=== PATIENT | female | born 1990 | race Hispanic/Latino ===

== ENCOUNTER 2017-03-30 19:35 | Emergency (ER) | payer MEDICAID ==
[2017-03-30 19:35] VITALS: BMI 43.4
--- NOTE | 2017-03-30 20:22 | ED PDOC ---
- Laboratory Results Result Diagrams: 03/30/17 20:55 03/30/17 20:55 - ECG O2 Sat by Pulse Oximetry: 98 Disposition - Clinical Impression Clinical Impression: Tonsillitis, Sinusitis - POA Present On Arrival: None - Disposition Referrals: [facility] [Outside] Disposition: Routine/Home Disposition Time: 01:00 Condition: IMPROVED Prescriptions: Amoxicillin/Clavulanate [Augmentin 875 MG-125 MG] 1 tab PO BID #14 tab Methylprednisolone [Medrol Dosepak] 4 mg PO ASDIR #1 pkg Instructions: Sinusitis (ED), Tonsillitis (ED)
[2017-03-30] MEDS ORDERED: Sodium Chloride 0.9% 1,000 ML IV STA (20:27)
[2017-03-30] MEDS ORDERED: Dexamethasone 10 MG in Sodium Chloride 0.9% 50 ML IV STA (20:38)
[2017-03-30 21:30] LABS: BASO # 0.1 K/uL (0.0-0.2); BASO % 0.3 % (0.0-2.0); EOS % 0.1 % (0.0-4.0); HEMATOCRIT 35.9 % (34.0-47.0); LYMPH # 2.1 K/uL (1.0-4.3); LYMPH % 11.3 % (20.0-40.0); MEAN CORPUSCULAR HEMOGLOBIN 28.5 pg (27.0-31.0); MEAN CORPUSCULAR HGB CONC 33.2 g/dL (33.0-37.0); MEAN PLATELET VOLUME 9.2 fl (7.2-11.7); MONO # 0.9 K/uL (0.0-0.8); MONO % 5.1 % (0.0-10.0); NEUT # 15.3 K/uL (1.8-7.0); NEUT % 83.2 % (50.0-75.0); RED CELL DISTRIBUTION WIDTH 13.7 % (11.5-14.5); WHITE BLOOD COUNT 18.4 K/uL (4.8-10.8)
[2017-03-30 21:52] LABS: ALB/GLOB RATIO 1.1 (1.0-2.1); ALKALINE PHOSPHATASE 105 U/L (38-126); ALT/SGPT 27 U/L (9-52); AST/SGOT 36 U/L (14-36); BILIRUBIN,TOTAL 0.7 mg/dl (0.2-1.3); BLOOD UREA NITROGEN 10 mg/dl (7-17); CARBON DIOXIDE 21 mmol/L (22-30); CHLORIDE 103 mmol/L (98-107); GFR AFRICAN-AMERICAN > 60; GLUCOSE,RANDOM 97 mg/dL (65-105); POTASSIUM 3.4 MMOL/L (3.6-5.0); SODIUM 136 mmol/l (132-148); TOTAL PROTEIN 8.1 G/DL (6.3-8.2)
--- NOTE | 2017-03-30 21:58 | ED PDOC ---
HPI: Fever Fever Onset Was: 03/29/17 Past Medical History Vital Signs: Last Vital Signs Temp 102.0 F H 03/30/17 21:38 Pulse 134 H 03/30/17 19:40 Resp 16 03/30/17 19:40 BP 134/73 03/30/17 19:40 Pulse Ox 98 03/30/17 20:43 - Medical History PMH: Depression, Gall Bladder Disease (Gall stones) - Family History Family History: States: Diabetes, Hypertension - Home Medications Home Medications: Ambulatory Orders Medication Instructions Recorded Nitrofurantoin Macrocrystals 100 mg PO BID #14 cap 06/14/16 [Macrobid] Cyclobenzaprine [Cyclobenzaprine 10 mg PO Q8 #15 tab 07/23/16 HCl] Naproxen [Naprosyn] 500 mg PO BID #20 tablet 07/23/16 Naproxen [Naprosyn] 500 mg PO Q12 PRN #20 tablet 08/18/16 Cephalexin [cephalexin] 500 mg PO TID #21 cap 01/04/17 Ibuprofen [Motrin] 600 mg PO TID PRN #30 tab 01/04/17 - Allergies Allergies/Adverse Reactions: Allergies Allergy/AdvReac Type Severity Reaction Status Date / Time No Known Allergies Allergy Verified 03/30/17 19:40 - ECG O2 Sat by Pulse Oximetry: 98
--- NOTE | 2017-03-30 22:04 | ED PDOC ---
HPI: General Adult Time Seen by Provider: 03/30/17 20:17 Chief Complaint (Nursing): Fever Chief Complaint (Provider): Sore Throat History Per: Patient History/Exam Limitations: no limitations Onset/Duration Of Symptoms: Days (1x) Current Symptoms Are (Timing): Still Present Severity: Moderate Additional Complaint(s): 26 year old female with no pertinent medical history presents to the ED with complaints of a sore throat, accompanied by general weakness, and a fever that started 1x day ago. She reports that she can not swallow solid food because of the intense pain. She also reports having 1x episode of non bloody non bilious vomiting. She denies having any other medical complaints. PMD: patient does not recall. Past Medical History Reviewed: Historical Data, Nursing Documentation, Vital Signs Vital Signs: Last Vital Signs Temp 98.2 F 03/31/17 01:49 Pulse 86 03/31/17 01:49 Resp 16 03/31/17 01:49 BP 136/81 03/31/17 01:49 Pulse Ox 98 03/31/17 21:52 - Medical History PMH: Depression, Gall Bladder Disease (Gall stones) - Surgical History Surgical History: No Surg Hx - Family History Family History: States: Diabetes, Hypertension - Social History Current smoker - smoking cessation education provided: No Alcohol: None Drugs: Denies - Home Medications Home Medications: Ambulatory Orders Medication Instructions Recorded Nitrofurantoin Macrocrystals 100 mg PO BID #14 cap 06/14/16 [Macrobid] Cyclobenzaprine [Cyclobenzaprine 10 mg PO Q8 #15 tab 07/23/16 HCl] Naproxen [Naprosyn] 500 mg PO BID #20 tablet 07/23/16 Naproxen [Naprosyn] 500 mg PO Q12 PRN #20 tablet 08/18/16 Cephalexin [cephalexin] 500 mg PO TID #21 cap 01/04/17 Ibuprofen [Motrin] 600 mg PO TID PRN #30 tab 01/04/17 Amoxicillin/Clavulanate [Augmentin 1 tab PO BID #14 tab 03/31/17 875 MG-125 MG] Methylprednisolone [Medrol Dosepak] 4 mg PO ASDIR #1 pkg 03/31/17 - Allergies Allergies/Adverse Reactions: Allergies Allergy/AdvReac Type Severity Reaction Status Date / Time No Known Allergies Allergy Verified 03/30/17 19:40 Review of Systems ROS Statement: Except As Marked, All Systems Reviewed And Found Negative Constitutional: Positive for: Fever, Weakness ENT: Positive for: Throat Pain Gastrointestinal: Positive for: Vomiting (1x episode) Physical Exam - Reviewed Nursing Documentation Reviewed: Yes Vital Signs Reviewed: Yes - Physical Exam Appears: Positive for: Non-toxic, Uncomfortable Head Exam: Positive for: ATRAUMATIC, NORMOCEPHALIC Skin: Positive for: Normal Color, Warm, Dry ENT: Positive for: Tonsillar Exudate (bilateral enlarged tonsils with exudate), Other (trismus. Mucous membranes are tacky) Neck: Positive for: Normal Cardiovascular/Chest: Positive for: Regular Rate, Rhythm Respiratory: Positive for: Normal Breath Sounds. Negative for: Respiratory Distress Lymphatic: Positive for: Adenopathy (bilateral cervical adenopathy, worse on the left side. left side is tender) Neurologic/Psych: Positive for: Alert, Oriented (3x) - Laboratory Results Result Diagrams: 03/30/17 20:55 03/30/17 20:55 - ECG O2 Sat by Pulse Oximetry: 98 (RA) Pulse Ox Interpretation: Normal Medical Decision Making Medical Decision Makin:17 Initial impression: 26 year old female patient with a fever, sore throat, and trismus with exudated tonsillitis. Initial plan: * CT neck soft tissue with contrast * CMP * lactic acid, plasma * urine * CBC * Decadron Inj 10mg Sodium Chloride .9% 50l IV * IV NS 1,000ml IV 1,000mls/hr * toradol 10mg IV * tylenol 975 m PO * clood culture * throat culture * mono * influenza AB * rapid strep * urinalysis * reevaluation Labs reviewed sig for leukocytosis and Strep Ag is positive; CT Neck ordered to further exclude peritonsillar abscess CT Neck reviewed demonstrates sinusitis and tonsillitis w/o evidence of abscess. Patient reports marked improvement in symptoms and is stable for dc home DX Acute Tonsillitis, Sinusitis RX Medrol, Augmentin, FU [facility] 2-3 days, Push Fluids Scribe Attestation: Documented by Hyacinth Mata, acting as a scribe for Jaime Ceballos MD. Provider Scribe Attestation: All medical record entries made by the Scribe were at my direction and personally dictated by me. I have reviewed the chart and agree that the record accurately reflects my personal performance of the history, physical exam, medical decision making, and the department course for this patient. I have also personally directed, reviewed, and agree with the discharge instructions and disposition. Disposition - Clinical Impression Clinical Impression: Tonsillitis, Sinusitis - Disposition Referrals: [facility] [Outside] Disposition Time: 01:00 Condition: IMPROVED Prescriptions: Amoxicillin/Clavulanate [Augmentin 875 MG-125 MG] 1 tab PO BID #14 tab Methylprednisolone [Medrol Dosepak] 4 mg PO ASDIR #1 pkg Instructions: Sinusitis (ED), Tonsillitis (ED)
[2017-03-30 23:06] LABS: URINE BILIRUBIN NEGATIVE (NEGATIVE); URINE COLOR YELLOW (YELLOW); URINE GLUCOSE (UA) NEGATIVE (Normal); URINE KETONE NEGATIVE (NEGATIVE)
[2017-03-30 23:07] LABS: URINE BLOOD LARGE (NEGATIVE)
[2017-03-30 23:08] LABS: RBC URINE 9 /hpf (0-3); URINE BACTERIA OCC (<OCC); URINE LEUKOCYTE ESTERASE TRACE Leu/uL (Negative); URINE PROTEIN 100 mg/dL (NEGATIVE); WBC URINE 5 /hpf (0-5)
[2017-03-30] MEDS ORDERED: Sodium Chloride 0.9% 50 ML IV ONE (23:14)
[2017-03-30] MEDS ORDERED: Iohexol 300 100 ML IJ ONE (23:14)
[2017-03-30] MEDS ORDERED: cefTRIAXone (Rocephin) 1 gm Inj ONE (23:30)
[2017-03-31 01:50] VITALS: BP 136/81; PULSE 86; RESP 16; TEMP 98.2
--- NOTE | 2017-03-31 08:16 | CT ---
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 This CT exam was performed using one or more of the following dose reduction techniques: automated exposure control, adjustment of the mA and/or kV according to patient size, and/or use of iterative reconstruction technique. Coronal and sagittal reformatted images were created and reviewed. CONTRAST: 85 mL of administered intravenously. EXAM DATE/TIME: Exam ordered 03/30/2017 8:38 PM COMPARISON: No relevant prior studies available. FINDINGS: Artifacts: Please note evaluation of the mediastinum is very limited related to artifact. Nasopharynx: Moderate prominence of the adenoids. Oropharynx: Clarification has been provided that there is concern for peritonsillar abscess. There is bilateral prominence of the palatine tonsils. In addition, see for example series 2 image 34 and adjacent, there are multiple calcifications associated with the right palatine tonsil. calcification series 2 image 41 in the left palatine tonsil. No drainable collection is appreciated however. Hypopharynx: Unremarkable. Larynx: Unremarkable. Normal epiglottis. Trachea: Unremarkable. Retropharyngeal space: Unremarkable. Submandibular/parotid glands: Unremarkable. Glands are normal in size. Thyroid: The isthmus of the thyroid appears prominent, there are no focal thyroid lesions seen. Consider laboratory correlation with thyroid studies. Bones/joints: There is reversal of the normal cervical lordosis, this finding can sometimes be associated with muscle spasm. Clinical correlation. No acute fracture. Soft tissues: Unremarkable. Vasculature: The jugular veins bilaterally appear patent. Included portions of the carotid arteries appear patent noting some limitations in the thorax. Lymph nodes: There are pathologically enlarged nodes in the bilateral neck. For example, 14 mm short axis node, level III, series 2 image 39. Prominent left-sided level III and probable level I nodes series 2 image 42. Sinuses: There is a large mucus retention cyst or polyp in the right maxillary sinus, multiple small mucous retention cysts or polyps left maxillary sinus. There is moderate patchy mucoperiosteal disease of the ethmoids, left greater than right. Bubbly secretions in the right sphenoid sinus, this finding can sometimes be associated with more acute sinusitis. There is minimal inclusion of the frontal sinuses, with suggestion of some mucoperiosteal disease. Mastoid air cells: Mastoid air cells appear clear. Esophagus: Air in the esophagus suggesting reflux. Lung apices: Included portions of the lungs with mild mosaic attenuation, this finding might reflect air trapping. IMPRESSION: Marked bilateral enlargement of the palatine tonsils, with multiple calcifications as above. No apparent drainable collections at the present time. Bilateral adenopathy. Paranasal sinuses as above. Laboratory correlation for the thyroid suggested, noting prominence without focal lesion
[2017-03-31 21:52] VITALS: O2SAT 98
== END 2017-03-31 01:46 | disposition home or self-care (01) ==
LOC: H.ER 19:35
DX: J03.90 Acute tonsillitis, unspecified (principal); J32.9 Chronic sinusitis, unspecified; R11.10 Vomiting, unspecified

== ENCOUNTER 2018-06-04 07:14 | Emergency (ER) | payer MEDICAID ==
[2018-06-04 07:14] VITALS: BMI 43.4
[2018-06-04 07:19] VITALS: O2SAT 97
[2018-06-04] MEDS ORDERED: Sodium Chloride 0.9% 1,000 ML IV STA (07:57)
--- NOTE | 2018-06-04 07:58 | ED PDOC ---
HPI: Abdomen Time Seen by Provider: 06/04/18 07:23 Chief Complaint (Nursing): Abdominal Pain Chief Complaint (Provider): Abdominal Pain History Per: Patient History/Exam Limitations: no limitations Onset/Duration Of Symptoms: Persistent (x6 days) Current Symptoms Are (Timing): Still Present Location Of Pain/Discomfort: RUQ Associated Symptoms: Vomiting, Constipation Exacerbating Factors: Food Last Bowel Movement: Other (last week) Additional Complaint(s): 27 year old female with medical history of diabetes, presents to the emergency department with a complaint of right-sided abdominal pain associated with right leg numbness, constipation, bloating and 2 episodes of vomiting (last night) ongoing for 6 days. She denies any leg pain, fever, chills, nausea, diarrhea, back pain or urinary complaints. She reports pain is worse when eating/drinking and has been taking Tylenol PM for relief. Last bowel movement was 1 week ago. Of note, patient was treated for gallstones in ED on 08/17/16. PMD: none provided Past Medical History Reviewed: Historical Data, Nursing Documentation, Vital Signs Vital Signs: Last Vital Signs Temp 98.2 F 06/04/18 07:18 Pulse 62 06/04/18 07:18 Resp 18 06/04/18 07:18 BP 115/66 06/04/18 07:18 Pulse Ox 97 06/04/18 14:13 - Medical History PMH: Depression, Gall Bladder Disease (Gall stones) - Surgical History Surgical History: Denies: No Surg Hx Other surgeries: right ankle - Family History Family History: States: Diabetes, Hypertension - Social History Current smoker - smoking cessation education provided: Yes Alcohol: None Drugs: Denies - Immunization History Hx Tetanus Toxoid Vaccination: No Hx Influenza Vaccination: Yes Hx Pneumococcal Vaccination: No - Home Medications Home Medications: Ambulatory Orders Medication Instructions Recorded Nitrofurantoin Macrocrystals 100 mg PO BID #14 cap 06/14/16 [Macrobid] Cyclobenzaprine [Cyclobenzaprine 10 mg PO Q8 #15 tab 07/23/16 HCl] Naproxen [Naprosyn] 500 mg PO Q12 PRN #20 tablet 08/18/16 Cephalexin [cephalexin] 500 mg PO TID #21 cap 01/04/17 Ibuprofen [Motrin] 600 mg PO TID PRN #30 tab 02/22/17 Amoxicillin/Clavulanate [Augmentin 1 tab PO BID #14 tab 03/31/17 875 MG-125 MG] Methylprednisolone [Medrol Dosepak] 4 mg PO ASDIR #1 pkg 03/31/17 Naproxen [Naprosyn] 500 mg PO BID #20 tablet 06/04/18 - Allergies Allergies/Adverse Reactions: Allergies Allergy/AdvReac Type Severity Reaction Status Date / Time No Known Allergies Allergy Verified 03/30/17 19:40 Review of Systems ROS Statement: Except As Marked, All Systems Reviewed And Found Negative Constitutional: Negative for: Fever, Chills Gastrointestinal: Positive for: Vomiting (x2), Abdominal Pain (right-sided with bloating sensation), Constipation. Negative for: Nausea, Diarrhea Genitourinary Female: Negative for: Dysuria, Frequency, Incontinence, Hematuria Musculoskeletal: Negative for: Back Pain, Leg Pain (bilateral) Neurological: Positive for: Numbness (right leg) Physical Exam - Reviewed Nursing Documentation Reviewed: Yes Vital Signs Reviewed: Yes - Physical Exam Appears: Positive for: Non-toxic, No Acute Distress Head Exam: Positive for: ATRAUMATIC, NORMAL INSPECTION, NORMOCEPHALIC Skin: Positive for: Normal Color Eye Exam: Positive for: Normal appearance ENT: Positive for: Normal ENT Inspection Neck: Positive for: Normal Cardiovascular/Chest: Positive for: Regular Rate, Rhythm Respiratory: Positive for: Normal Breath Sounds. Negative for: Wheezing, Respiratory Distress Gastrointestinal/Abdominal: Positive for: Soft, Tenderness (significantly in RUQ ), Other (morbidly obese) Back: Positive for: Normal Inspection. Negative for: L CVA Tenderness, R CVA Tenderness Extremity: Positive for: Normal ROM (upper/lower). 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 Negative for: Motor/Sensory Deficits - Laboratory Results Result Diagrams: 06/04/18 08:10 06/04/18 08:10 - ECG O2 Sat by Pulse Oximetry: 97 (RA) Pulse Ox Interpretation: Normal - Progress Re-evaluation Time: 13:52 Condition: Re-examined, Improved Medical Decision Making Medical Decision Making: Initial Impression: Abdominal pain Differential Diagnosis: Acute cholecystitis; pancreatitis Initial Plan: * CMP * Lipase * Urine dipstick * CBC * Morphine 4mg IVP * NS 1,000ml IV per 1,000mls/hr * US ABD Time: 0847 --Labs: no significant abnormality. Time: 1128 --US ABD FINDINGS: LIVER: Measures 21.0 cm in length. Normal echogenicity of the liver parenchyma. No mass. No intrahepatic bile duct dilatation. Hepatomegaly suggested. GALLBLADDER: Extensive cholelithiasis identified within the gallbladder lumen. There is no sonographic Schwab sign however, pericholecystic fluid collection or gross mural thickening. Clinically correlate nevertheless. COMMON BILE DUCT: Measures 4.7 mm. No stones. No dilatation. PANCREAS: The tail of the pancreas is obscured by overlying bowel gas with remainder unremarkable. RIGHT KIDNEY: Measures 12.3 cm in length. Normal echogenicity. No calculus, mass, or hydronephrosis. AORTA: No aneurysmal dilatation. IVC: Unremarkable. OTHER FINDINGS: None . IMPRESSION: 1. Extensive cholelithiasis is seen within a distended gallbladder which is otherwise unremarkable appearing. Normal apparent biliary tree. Clinically correlate further. 2. Partial imaging of the pancreas with remainder the examination reflecting only hepatomegaly. No defined hepatic mass identified. Time: 1335 --CT ABD FINDINGS: LOWER THORAX: Unremarkable. LIVER: Unremarkable. No gross lesion or ductal dilatation. GALLBLADDER AND BILE DUCTS: Unremarkable. PANCREAS: Unremarkable. No gross lesion or ductal dilatation. SPLEEN: Unremarkable. ADRENALS: Unremarkable. No mass. KIDNEYS AND URETERS: Unremarkable. No hydronephrosis. No solid mass. VASCULATURE: Unremarkable. No aortic aneurysm. BOWEL: Colonic diverticulosis. No obstruction. No gross mural thickening. APPENDIX: Unremarkable. Normal appendix. PERITONEUM: Unremarkable. No free fluid. No free air. LYMPH NODES: Unremarkable. No enlarged lymph nodes. BLADDER: Unremarkable. REPRODUCTIVE: Unremarkable. BONES: No acute fracture. OTHER FINDINGS: Supraumbilical hernia containing omental fat. Additional smaller periumbilical hernia. IMPRESSION: Supraumbilical hernia containing omental fat. Additional smaller periumbilical hernia. Diverticulosis. Time: 1346 --Upon provider reevaluation, patient reports feeling better, is medically stable and requires no further treatment in the ED at this time. Patient will be discharged home with Rx for Naprosyn 500mg. Counseling was provided and all questions were answered regarding diagnosis and need for follow up with [facility]. There is agreement to discharge plan. Return if symptoms persist or worsen. Clinical Impression: Abdominal pain Scribe Attestation: Documented by Pham Reed, acting as a scribe for Angelica Arevalo MD. Provider Scribe Attestation: All medical record entries made by the Scribe were at my direction and personally dictated by me. I have reviewed the chart and agree that the record accurately reflects my personal performance of the history, physical exam, medical decision making, and the department course for this patient. I have also personally directed, reviewed, and agree with the discharge instructions and disposition. Disposition - Clinical Impression Clinical Impression: Abdominal pain in female - Patient ED Disposition Is Patient to be Admitted: No Doctor Will See Patient In The: Office Counseled Patient/Family Regarding: Studies Performed, Diagnosis, Need For Followup, Rx Given - Disposition Referrals: [facility] [Outside] Disposition: Routine/Home Disposition Time: 13:46 Condition: GOOD Additional Instructions: Take your medications as instructed. Follow up with your PCP in 2-3 days. Prescriptions: Naproxen [Naprosyn] 500 mg PO BID #20 tablet Instructions: Acute Abdomen (Belly Pain) Forms: [facility] ED School/Work Excuse
[2018-06-04 08:19] LABS: BASO # 0.1 K/uL (0.0-0.2); BASO % 0.8 % (0.0-2.0); EOS # 0.4 K/uL (0.0-0.7); HEMOGLOBIN 12.1 g/dL (12.0-16.0); LYMPH # 3.3 K/uL (1.0-4.3); LYMPH % 34.8 % (20.0-40.0); MEAN CELL VOLUME 84.9 fl (81.0-99.0); MEAN CORPUSCULAR HEMOGLOBIN 29.4 pg (27.0-31.0); MEAN CORPUSCULAR HGB CONC 34.6 g/dL (33.0-37.0); MEAN PLATELET VOLUME 9.4 fl (7.2-11.7); MONO # 0.6 K/uL (0.0-0.8); NEUT # 5.1 K/uL (1.8-7.0); NEUT % 54.4 % (50.0-75.0); NRBC % 0.1 % (0.0-0.0); RBC 4.11 Mil/uL (3.80-5.20); RED CELL DISTRIBUTION WIDTH 14.3 % (11.5-14.5); WHITE BLOOD COUNT 9.4 K/uL (4.8-10.8)
[2018-06-04 08:27] LABS: ALB/GLOB RATIO 1.1 (1.0-2.1); ALBUMIN 3.8 g/dL (3.5-5.0); ALT/SGPT 17 U/L (9-52); AST/SGOT 15 U/L (14-36); BLOOD UREA NITROGEN 9 mg/dl (7-17); CALCIUM 8.8 mg/dL (8.4-10.2); GFR AFRICAN-AMERICAN > 60; GFR NON-AFRICAN AMERICAN > 60; LIPASE 344 U/L (23-300)
--- NOTE | 2018-06-04 11:29 | US ---
Date of service: 06/04/2018 HISTORY: RUQ pain COMPARISON: None. TECHNIQUE: Sonographic evaluation of the right upper quadrant of the abdomen. FINDINGS: LIVER: Measures 21.0 cm in length. Normal echogenicity of the liver parenchyma. No mass. No intrahepatic bile duct dilatation. Hepatomegaly suggested. GALLBLADDER: Extensive cholelithiasis identified within the gallbladder lumen. There is no sonographic Schwab sign however, pericholecystic fluid collection or gross mural thickening. Clinically correlate nevertheless. COMMON BILE DUCT: Measures 4.7 mm. No stones. No dilatation. PANCREAS: The tail of the pancreas is obscured by overlying bowel gas with remainder unremarkable. RIGHT KIDNEY: Measures 12.3 cm in length. Normal echogenicity. No calculus, mass, or hydronephrosis. AORTA: No aneurysmal dilatation. IVC: Unremarkable. OTHER FINDINGS: None . IMPRESSION: 1. Extensive cholelithiasis is seen within a distended gallbladder which is otherwise unremarkable appearing. Normal apparent biliary tree. Clinically correlate further. 2. Partial imaging of the pancreas with remainder the examination reflecting only hepatomegaly. No defined hepatic mass identified.
[2018-06-04] MEDS ORDERED: Sodium Chloride 0.9% 100 ML ONE (12:33)
[2018-06-04] MEDS ORDERED: Iohexol 300 100 ML IJ ONE (12:33)
--- NOTE | 2018-06-04 13:37 | CT ---
Date of service: 06/04/2018 PROCEDURE: CT Abdomen and Pelvis without intravenous contrast HISTORY: RUQ pain right flank pain COMPARISON: None. TECHNIQUE: Technique. Contrast dose: Radiation dose: Total exam DLP = mGy-cm. This CT exam was performed using one or more of the following dose reduction techniques: Automated exposure control, adjustment of the mA and/or kV according to patient size, and/or use of iterative reconstruction technique. FINDINGS: LOWER THORAX: Unremarkable. LIVER: Unremarkable. No gross lesion or ductal dilatation. GALLBLADDER AND BILE DUCTS: Unremarkable. PANCREAS: Unremarkable. No gross lesion or ductal dilatation. SPLEEN: Unremarkable. ADRENALS: Unremarkable. No mass. KIDNEYS AND URETERS: Unremarkable. No hydronephrosis. No solid mass. VASCULATURE: Unremarkable. No aortic aneurysm. BOWEL: Colonic diverticulosis. No obstruction. No gross mural thickening. APPENDIX: Unremarkable. Normal appendix. PERITONEUM: Unremarkable. No free fluid. No free air. LYMPH NODES: Unremarkable. No enlarged lymph nodes. BLADDER: Unremarkable. REPRODUCTIVE: Unremarkable. BONES: No acute fracture. OTHER FINDINGS: Supraumbilical hernia containing omental fat. Additional smaller periumbilical hernia. IMPRESSION: Supraumbilical hernia containing omental fat. Additional smaller periumbilical hernia. Diverticulosis.
[2018-06-04 14:18] VITALS: BP 120/60; PULSE 68; RESP 16; TEMP 98
== END 2018-06-04 14:16 | disposition home or self-care (01) ==
LOC: H.ER 07:14
DX: R10.2 Pelvic and perineal pain (principal); F17.200 Nicotine dependence, unspecified, uncomplicated; Z86.59 Personal history of other mental and behavioral disorders
CPT/HCPCS: 74177; 76705; 80053; 81025; 83690; 85025; 96361; 96374; 99283; J2270; J7030; Q9967

== ENCOUNTER 2018-09-13 18:28 | Emergency (ER) | payer MEDICAID ==
[2018-09-13 18:28] VITALS: BMI 43.4
[2018-09-13 18:49] VITALS: RESP 18
--- NOTE | 2018-09-13 20:53 | ED PDOC ---
HPI: CCC, URI, Sore Throat Time Seen by Provider: 09/13/18 19:19 Chief Complaint (Nursing): ENT Problem Chief Complaint (Provider): left ear, malaise and dry cough History Per: Patient History/Exam Limitations: no limitations Onset/Duration Of Symptoms: Days (x2) Location Of Pain: Ear(s) (left) Associated Symptoms: Fever (subjective), Cough (dry). denies: Chills, Nausea, Vomiting, Diarrhea Ear Symptoms: Left: Ear Pain Additional Complaint(s): 27 year old female, with no significant past medical history, who presents to the emergency department complaining of left ear pain, generalized malaise, and dry cough onset for x2 days. Patient also admits to a subjective fever but has not measure her temperature. She denies any chills, night sweats, nausea, vomit, diarrhea, dysuria, frequency, urgency or sick contacts. No further medical complaints. PMD: None provided. Past Medical History Reviewed: Historical Data, Nursing Documentation, Vital Signs Vital Signs: Last Vital Signs Temp 98.3 F 09/13/18 18:48 Pulse 68 09/13/18 18:48 Resp 18 09/13/18 18:48 BP 116/79 09/13/18 18:48 Pulse Ox 100 09/13/18 18:48 - Medical History PMH: Depression, Gall Bladder Disease (Gall stones) - Surgical History Surgical History: No Surg Hx - Family History Family History: States: Diabetes, Hypertension - Social History Current smoker - smoking cessation education provided: Yes Alcohol: None Drugs: Denies - Immunization History Hx Tetanus Toxoid Vaccination: No Hx Influenza Vaccination: Yes Hx Pneumococcal Vaccination: No - Home Medications Home Medications: Ambulatory Orders Medication Instructions Recorded Nitrofurantoin Macrocrystals 100 mg PO BID #14 cap 06/14/16 [Macrobid] Cyclobenzaprine [Cyclobenzaprine 10 mg PO Q8 #15 tab 07/23/16 HCl] Naproxen [Naprosyn] 500 mg PO Q12 PRN #20 tablet 08/18/16 Cephalexin [cephalexin] 500 mg PO TID #21 cap 01/04/17 Ibuprofen [Motrin] 600 mg PO TID PRN #30 tab 01/04/17 Amoxicillin/Clavulanate [Augmentin 1 tab PO BID #14 tab 03/31/17 875 MG-125 MG] Methylprednisolone [Medrol Dosepak] 4 mg PO ASDIR #1 pkg 03/31/17 Naproxen [Naprosyn] 500 mg PO BID #20 tablet 06/04/18 Ibuprofen [Motrin Tab] 600 mg PO Q6H PRN 5 Days tab 09/13/18 - Allergies Allergies/Adverse Reactions: Allergies Allergy/AdvReac Type Severity Reaction Status Date / Time No Known Allergies Allergy Verified 09/13/18 18:48 Review of Systems ROS Statement: Except As Marked, All Systems Reviewed And Found Negative Constitutional: Positive for: Fever (subjective), Malaise. Negative for: Chills, Sweats ENT: Positive for: Ear Pain (left) Respiratory: Positive for: Cough (dry) Gastrointestinal: Negative for: Nausea, Vomiting, Diarrhea Genitourinary Female: Negative for: Dysuria, Frequency Physical Exam - Reviewed Nursing Documentation Reviewed: Yes Vital Signs Reviewed: Yes - Physical Exam Appears: Positive for: Uncomfortable Head Exam: Positive for: ATRAUMATIC, NORMAL INSPECTION, NORMOCEPHALIC Skin: Positive for: Normal Color, Warm, Dry Eye Exam: Positive for: Normal appearance, EOMI, PERRL ENT: Positive for: Normal ENT Inspection, Other (swollen nasal turbinates b/l. Left ear occluded by cerumen. Auditory canal w/o any edema, lesions or pain to palpation to tragus. Positive tenderness on palpation to posterior ear.) Neck: Negative for: Normal (mild tenderness to palpation of left upper neck.) Cardiovascular/Chest: Positive for: Regular Rate, Rhythm. Negative for: Murmur Respiratory: Positive for: Rhonchi (mild on left base. CTA on right) Gastrointestinal/Abdominal: Positive for: Normal Exam, Soft. Negative for: Tenderness, Guarding, Rebound Back: Positive for: Normal Inspection. Negative for: L CVA Tenderness, R CVA Te nderness, Vertebral Tenderness Extremity: Positive for: Normal ROM (upper and lower extremities). Negative for: Deformity, Swelling Neurologic/Psych: Positive for: Alert, Oriented - Laboratory Results Result Diagrams: 09/13/18 21:45 09/13/18 21:45 - ECG O2 Sat by Pulse Oximetry: 100 (RA) Pulse Ox Interpretation: Normal Medical Decision Making Medical Decision Making: Time: 19:19 Initial Impression: flu-like symptoms Initial Plan: --Urine --Chest two views (PA/LAT) [RAD] --Tylenol 325 mg tab 650 mg PO --Influenza A B --Reevaluation - rapid strep - CBC, CMP CXR reviewed by me: no obvious infiltrate or acute abnormality. Rapid strep and rapid flu negative CBC and CMP wnl Urine preg: negative Mild improvement in symptoms after Tylenol. Scribe Attestation: Documented by Omid Green, acting as a scribe for Karla Lo PA-C Provider Scribe Attestation: All medical record entries made by the Scribe were at my direction and personall y dictated by me. I have reviewed the chart and agree that the record accurately reflects my personal performance of the history, physical exam, medical decision making, and the department course for this patient. I have also personally directed, reviewed, and agree with the discharge instructions and disposition. Disposition - Clinical Impression Clinical Impression: Viral respiratory illness - Patient ED Disposition Is Patient to be Admitted: No Counseled Patient/Family Regarding: Studies Performed, Diagnosis, Need For Followup - Disposition Referrals: [facility] [Outside] Disposition Time: 23:47 Condition: STABLE Additional Instructions: Get lots of rest, drink fluids and take Tylenol or Motrin for fevers/body aches Prescriptions: Ibuprofen [Motrin Tab] 600 mg PO Q6H PRN 5 Days tab PRN Reason: Fever >100.4 F Instructions: Viral Syndrome (DC) Forms: [employer] ([place]), [facility] ED School/Work Excuse Print Language: POLISH - POA Present On Arrival: None
[2018-09-13 21:51] LABS: BASO # 0.1 K/uL (0.0-0.2); BASO % 1.1 % (0.0-2.0); EOS # 0.3 K/uL (0.0-0.7); EOS % 2.8 % (0.0-4.0); HEMOGLOBIN 11.9 g/dL (12.0-16.0); LYMPH # 3.2 K/uL (1.0-4.3); LYMPH % 35.2 % (20.0-40.0); MEAN CELL VOLUME 87.4 fl (81.0-99.0); MEAN CORPUSCULAR HEMOGLOBIN 28.3 pg (27.0-31.0); MEAN CORPUSCULAR HGB CONC 32.4 g/dL (33.0-37.0); MEAN PLATELET VOLUME 9.7 fl (7.2-11.7); MONO # 0.6 K/uL (0.0-0.8); MONO % 6.5 % (0.0-10.0); NEUT % 54.4 % (50.0-75.0); RBC 4.21 Mil/uL (3.80-5.20); RED CELL DISTRIBUTION WIDTH 14.1 % (11.5-14.5); WHITE BLOOD COUNT 9.2 K/uL (4.8-10.8)
[2018-09-13 22:02] LABS: ALBUMIN 3.8 g/dL (3.5-5.0); ALT/SGPT 20 U/L (9-52); AST/SGOT 23 U/L (14-36); BLOOD UREA NITROGEN 16 mg/dl (7-17); CALCIUM 9.1 mg/dL (8.4-10.2); GFR NON-AFRICAN AMERICAN > 60
[2018-09-14 00:57] VITALS: BP 117/61; PULSE 88; TEMP 98.1; O2SAT 98
--- NOTE | 2018-09-14 10:03 | RAD ---
Date of service: 09/13/2018 HISTORY: shortness of breath, cough COMPARISON: Chest radiographs 03/04/2014. TECHNIQUE: Chest PA and lateral FINDINGS: LUNGS: No active pulmonary disease. PLEURA: No significant pleural effusion identified. No pneumothorax apparent. CARDIOVASCULAR: No aortic atherosclerotic calcification present. Normal cardiac size. No pulmonary vascular congestion. OSSEOUS STRUCTURES: No significant abnormalities. VISUALIZED UPPER ABDOMEN: Normal. OTHER FINDINGS: None. IMPRESSION: No interval acute cardiopulmonary disease appreciated.
== END 2018-09-14 00:55 | disposition home or self-care (01) ==
LOC: H.ER 18:28
DX: B34.9 Viral infection, unspecified (principal)

== ENCOUNTER 2018-09-27 11:42 | Emergency (ER) | payer MEDICAID ==
[2018-09-27 11:44] VITALS: BMI 31.7
[2018-09-27 11:46] VITALS: TEMP 97.7; O2SAT 98
[2018-09-27] MEDS ORDERED: Silver Sulfadiazine 1% Cream (20 gm) TOP STA (11:58)
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
[2018-09-27] MEDS ORDERED: Silver Sulfadiazine 1% CREAM (50 gm) ONE (12:10)
[2018-09-27 15:09] VITALS: BP 120/70; PULSE 73; RESP 18
== END 2018-09-27 12:19 | disposition home or self-care (01) ==
LOC: H.ER 11:42
DX: T23.201A Burn of second degree of right hand, unspecified site, initial encounter (principal); Y92.89 Other specified places as the place of occurrence of the external cause